=== PATIENT | male | born 1970 | race Caucasian/White ===

== ENCOUNTER → 2021-08-20 | Outpatient (CLI) | payer OTHER ==
--- NOTE | 2021-08-20 15:30 | RAD ---
Left lower extremity venous duplex study Clinical History: Lower extremity pain Technique: Using a combination of real time ultrasound imaging and color-flow and pulse Doppler imagi ng techniques, including spectral analysis, graded compression and augmentation, duplex evaluation of the deep venous system of the left lower extremity was performed. Multiple images were obtained. Findings: There is no sonographic evidence of deep venous thrombosis involving the visualized deep ve nous structures of the left lower extremity. Small fluid collection noted in the medial posterior lef t calf measuring 7.4 x 6.9 x 0 point centimeters. Impression: 1.No evidence of deep venous thrombosis involving the left lower extremity 2. Small fluid collection in the subcutaneous tissues of the medial posterior calf measuring 7.4 x 6. 9 x 0 point centimeters. Findings could represent small resolving hematoma, seroma, or less likely ab scess. Electronically signed by: Jaskaran Cruz MD (08/20/2021 3:27 PM) [id number]
== END ==
LOC: US 14:26
PROVIDERS: ATTEND Nurse Practitioner Family
DX: I82.402 Acute embolism and thrombosis of unspecified deep veins of left lower extremity (principal); M79.662 Pain in left lower leg
CPT/HCPCS: 93971

== ENCOUNTER → 2021-12-03 | Outpatient (CLI) | payer OTHER ==
[~2021-12-03] MED LIST: IOHEXOL 350 MG/ML 100 ML VIAL. IV ONE
--- NOTE | 2021-12-03 11:04 | RAD ---
EXAM: CT angiography of the chest with intravenous contrast. HISTORY: Enlarged aorta. TECHNIQUE: Computed tomographic images of the chest were obtained following the administration of int ravenous contrast according to angiography protocol. Multiplanar reformatting was performed and three dimensional maximum intensity projection images were obtained. *One or more of the following individualized dose reduction techniques were utilized for this examina tion: 1. Automated exposure control. 2. Adjustment of the mA and/or kV according to patient size. 3. Use of iterative reconstruction technique. COMPARISON: None. FINDINGS: There is aneurysmal dilatation of the ascending aorta to a caliber of 4.2 cm. There is no e vidence of aortic dissection. There is a prominent bronchial artery arising from the medial wall of t he junction of the distal aortic arch and proximal descending aorta. This can be a normal variant. Th ere is an otherwise standard aortic arch branching pattern. There is no lymphadenopathy. There are a few calcified granulomas. There is no pneumothorax or pleura l effusion. There is bilateral posterior dependent atelectasis. There is no suspicious pulmonary nodu le. There is no acute finding involving the upper abdomen. There is no acute or suspicious osseous fi nding. IMPRESSION: 1. Mildly aneurysmal ascending aorta measuring 2.4 cm. 2. Prominent bronchial artery arising from the junction of the distal aortic arch and proximal descen ding aorta. There is no convincing underlying etiology such as bronchiectasis, chronic inflammation o r pulmonary artery stenosis. This can be a normal variant of no clinical significance. 3. No acute pulmonary finding. Electronically signed by: Elle An MD (12/03/2021 11:01 AM) [id number]
== END ==
LOC: CT 09:38
PROVIDERS: ATTEND Family Medicine
DX: I71.2 Thoracic aortic aneurysm, without rupture (principal); J98.11 Atelectasis
CPT/HCPCS: 71275; Q9967